=== PATIENT | female | born 1945 | race Caucasian/White ===

== ENCOUNTER 2016-10-18 14:21 | Outpatient (CLI) | payer BC | END 2016-10-18 14:22 | disposition home or self-care (01) | DX: Z12.31 Encounter for screening mammogram for malignant neoplasm of breast (principal) ==

== ENCOUNTER 2016-12-04 06:17 | Inpatient (IN) | payer MEDICARE, BC ==
[2016-12-04] MEDS ORDERED: LACTATED RINGERS 1,000 ML IV ONE ×3 (06:57→10:44)
[2016-12-04] MEDS ORDERED: ceFAZolin 2 GM/50 ML 50 ML IV ONE (07:05)
[2016-12-04] MEDS ORDERED: KETOROLAC 30 MG/ML VIAL IVP ONE (08:00)
[2016-12-04] MEDS ORDERED: ePHEDrine 50 MG/ML AMP IVP ONE (08:00)
[2016-12-04] MEDS ORDERED: LIDOCAINE-MPF 2% 5 ML VIAL IM ONE (08:00)
[2016-12-04] MEDS ORDERED: TRANEXAMIC ACID 1,000 MG/10 ML VIAL IV ONE (08:00)
[2016-12-04] MEDS ORDERED: MIDAZOLAM 2 MG/2 ML VIAL IVP ONE (08:00)
[2016-12-04] MEDS ORDERED: ACETAMINOPHEN 1,000 MG/100 ML VIAL IV ONE (08:00)
[2016-12-04] MEDS ORDERED: fentaNYL 100 MCG/2 ML VIAL IVP ONE (08:00)
[2016-12-04] MEDS ORDERED: KETAMINE 500 MG/10 ML VIAL IVP ONE (08:00)
[2016-12-04] MEDS ORDERED: PROPOFOL 200 MG/20 ML VIAL IVP ONE (08:00)
[2016-12-04] MEDS ORDERED: BUPIVACAINE 0.25%-EPI 1:200000 PF 30 ML VIAL SUBQ ONE ×2 (08:42)
[2016-12-04] MEDS ORDERED: EPINEPHrine 1 MG/ML AMP SUBQ ONE ×2 (08:43)
[2016-12-04] MEDS ORDERED: MORPHINE PF 5 MG/10 ML AMP SUBQ ONE ×2 (08:47)
[2016-12-04] MEDS ORDERED: KETOROLAC 30 MG/ML VIAL IM ONE ×2 (08:47)
[2016-12-04] MEDS ORDERED: ROPIVACAINE 0.2% PF 20 ML AMPULE SUBQ ONE ×2 (08:48)
[2016-12-04] MEDS: HYDROmorphone 1 MG/ML SYRINGE ONE ×4 (12:07→13:10)
[2016-12-04] MEDS ORDERED: ACETAMINOPHEN 1,000 MG/100 ML 100 ML IV PRN (12:17)
[2016-12-04] MEDS ORDERED: PROCHLORPERAZINE 10 MG/2 ML VIAL IVP PRN (12:17)
[2016-12-04] MEDS ORDERED: BISACODYL 10 MG SUPP PR PRN (12:17)
[2016-12-04] MEDS ORDERED: ONDANSETRON 4 MG/2 ML VIAL IVP PRN (12:17)
[2016-12-04] MEDS ORDERED: ZOLPIDEM 5 MG TABLET PO PRN (12:17)
[2016-12-04] MEDS ORDERED: DOCUSATE SODIUM 100 MG CAPSULE PO PRN (12:17)
[2016-12-04] MEDS ORDERED: diphenhydrAMINE 25 MG CAPSULE PO PRN (12:17)
[2016-12-04] MEDS ORDERED: oxyCOD/ACETAMIN 5 MG/325 MG TABLET PO PRN (12:17)
[2016-12-04] MEDS ORDERED: ACETAMINOPHEN 325 MG TABLET PO PRN (12:17)
[2016-12-04] MEDS ORDERED: BISACODYL 5 MG TABLET PO PRN (12:17)
[2016-12-04] MEDS ORDERED: HYDROmorphone 1 MG/ML SYRINGE ONE (12:30)
[2016-12-04] MEDS: SODIUM CHLORIDE FLUSH 0.9% 10 ML SYRINGE IVP SCH ×2 (14:17→20:39)
[2016-12-04] MEDS: LACTATED RINGERS 1,000 ML IV SCH ×2 (14:21→23:29)
[2016-12-04] MEDS: KETOROLAC 30 MG/ML VIAL IVP PRN (16:20)
[2016-12-04] MEDS: HYDROmorphone 1 MG/ML SYRINGE IVP PRN ×2 (16:57→19:36)
[2016-12-04] MEDS: ATORVASTATIN 10 MG TABLET PO SCH (20:38)
[2016-12-04] MEDS: ceFAZolin 2 GM/50 ML 50 ML IV SCH (20:38)
[2016-12-05] MEDS: traMADol 50 MG TABLET PO PRN ×4 (00:11→19:43)
[2016-12-05] MEDS: LACTATED RINGERS 1,000 ML IV SCH ×3 (00:11→22:19)
[2016-12-05] MEDS: HYDROmorphone 1 MG/ML SYRINGE IVP PRN (02:18)
[2016-12-05] MEDS: SODIUM CHLORIDE FLUSH 0.9% 10 ML SYRINGE IVP PRN ×2 (02:18→12:22)
[2016-12-05] MEDS: ceFAZolin 2 GM/50 ML 50 ML IV SCH (03:51)
[2016-12-05] MEDS: KETOROLAC 30 MG/ML VIAL IVP PRN ×3 (03:56→19:43)
[2016-12-05] MEDS: SODIUM CHLORIDE FLUSH 0.9% 10 ML SYRINGE IVP SCH ×3 (06:28→20:30)
[2016-12-05] MEDS: LEVOTHYROXINE 88 MCG TABLET PO SCH (06:32)
[2016-12-05] MEDS: MULTIVITAMIN TABLET PO SCH (08:50)
[2016-12-05] MEDS: CALCIUM CARBONATE CHEW 500 MG TABLET PO SCH (08:50)
[2016-12-05] MEDS: ASCORBIC ACID CHEW 500 MG TABLET PO SCH (08:50)
[2016-12-05] MEDS: MAGNESIUM OXIDE 400 MG TABLET PO SCH (08:50)
[2016-12-05] MEDS: CHOLECALCIFEROL 400 UNIT TABLET PO SCH (08:51)
[2016-12-05] MEDS: CHOLECALCIFEROL 1,000 UNIT TABLET PO SCH (08:51)
[2016-12-05] MEDS: ENOXAPARIN 30 MG/0.3 ML SYRINGE SUBQ SCH (08:51)
[2016-12-05] MEDS: OMEGA-3 ACID ETHYL ESTERS 1 GM CAPSULE PO SCH (08:52)
[2016-12-05] MEDS: ATORVASTATIN 10 MG TABLET PO SCH (20:30)
[2016-12-06] MEDS: traMADol 50 MG TABLET PO PRN ×2 (00:16→14:13)
[2016-12-06] MEDS: HYDROmorphone 1 MG/ML SYRINGE IVP PRN (04:16)
[2016-12-06] MEDS: SODIUM CHLORIDE FLUSH 0.9% 10 ML SYRINGE IVP SCH ×2 (06:34→10:10)
[2016-12-06] MEDS: LEVOTHYROXINE 88 MCG TABLET PO SCH (06:34)
[2016-12-06] MEDS: OMEGA-3 ACID ETHYL ESTERS 1 GM CAPSULE PO SCH (08:49)
[2016-12-06] MEDS: CHOLECALCIFEROL 1,000 UNIT TABLET PO SCH (08:50)
[2016-12-06] MEDS: CALCIUM CARBONATE CHEW 500 MG TABLET PO SCH (08:51)
[2016-12-06] MEDS: ASCORBIC ACID CHEW 500 MG TABLET PO SCH (08:51)
[2016-12-06] MEDS: MAGNESIUM OXIDE 400 MG TABLET PO SCH (08:51)
[2016-12-06] MEDS: MULTIVITAMIN TABLET PO SCH (08:51)
[2016-12-06] MEDS: ENOXAPARIN 30 MG/0.3 ML SYRINGE SUBQ SCH (08:54)
[2016-12-06] MEDS: CHOLECALCIFEROL 400 UNIT TABLET PO SCH (08:55)
[2016-12-06] MEDS: KETOROLAC 30 MG/ML VIAL IVP PRN (10:10)
== END 2016-12-06 14:30 | disposition home or self-care (01) | DRG 470 ==
PROC: 0SRB02A Replacement of Left Hip Joint with Metal on Polyethylene Synthetic Substitute, Uncemented, Open Approach (ICD-10-PCS; principal; 2016-12-04 07:30)
DX: M16.12 Unilateral primary osteoarthritis, left hip (principal); E03.9 Hypothyroidism, unspecified; E78.5 Hyperlipidemia, unspecified; K21.9 Gastro-esophageal reflux disease without esophagitis; Z87.891 Personal history of nicotine dependence

== ENCOUNTER 2017-10-22 13:59 | Outpatient (CLI) | payer BC ==
--- NOTE | 2017-10-23 21:16 | Mammography Report ---
DATE OF SERVICE: 10/22/2017 DIGITAL SCREENING MAMMOGRAM: 10/22/2017 CLINICAL INDICATION: A 72-year-old for screening. COMPARISON: 09/2016, 08/2014, 07/2013, 11/2011, 10/2010, 09/2009. TECHNIQUE: Routine CC and MLO projections were obtained of the breasts. The breasts demonstrate fatty replacement bilaterally. Coarse and punctate, typically benign calcifications are present. No suspicious masses, clustered microcalcifications, or regions of architectural distortion are identified. IMPRESSION: Benign findings. RECOMMENDATIONS: Routine annual screening unless otherwise clinically indicated. BIRADS category 2 benign findings. STANDARD QUALIFYING STATEMENTS 1. This examination was reviewed with the aid of Computed-Aided Detection (CAD). 2. A negative or benign imaging report should not delay biopsy if clinically suspicious findings are present. Consider surgical consultation if warranted. More than 5% of cancers are not identified by imaging. 3. Dense breasts may obscure an underlying neoplasm. TD: 10/23/2017 22:15
== END 2017-10-22 14:00 | disposition home or self-care (01) ==
LOC: DI 13:59
PROVIDERS: ATTEND Physician Assistant
DX: Z12.31 Encounter for screening mammogram for malignant neoplasm of breast (principal)
CPT/HCPCS: 77067

== ENCOUNTER 2020-02-23 13:27 | Outpatient (CLI) | payer BC ==
--- NOTE | 2020-02-24 12:15 | Mammography Report ---
BILATERAL DIGITAL SCREENING MAMMOGRAM 3D/2D WITH CAD: 02/23/2020 CLINICAL: Routine screening. Comparison is made to exams dated: 10/22/2017 mammogram, 10/18/2016 mammogram, and 09/10/2014 mammogra m - [facility]. There are scattered fibroglandular elements in both breasts. Current study was also evaluated with a Computer Aided Detection (CAD) system. No significant masses, calcifications, or other findings are seen in either breast. There has been no significant interval change. IMPRESSION: NEGATIVE There is no mammographic evidence of malignancy. A 1 year screening mammogram is recommended. This exam was interpreted at Station ID: [id number]. NOTE: For mammograms, a report in lay terms will be sent to the patient. Approximately 15% of breast malignancies will not be visualized mammographically. In the management of a palpable breast mass, a negative mammogram must not discourage biopsy of a clinically suspicious lesion. Electronically Signed By: Harjit menon/pensharron:02/23/2020 16:53:44 ACR BI-RADS Category 1: Negative 3341F PARENCHYMAL PATTERN: (A) - The breast(s) demonstrate(s) scattered fibroglandular densities. BI-RADS CATEGORY: (1) - 1 Annual - (ANNUAL) - Recommend routine annual screening mammography. [id number] 1 year screening B
== END 2020-02-23 13:28 | disposition home or self-care (01) ==
LOC: DI 13:27
PROVIDERS: ATTEND Nurse Practitioner Family
DX: Z12.31 Encounter for screening mammogram for malignant neoplasm of breast (principal)
CPT/HCPCS: 77063; 77067

== ENCOUNTER 2020-10-08 07:57 | Outpatient (CLI) | payer BC, MEDICARE ==
--- NOTE | 2020-10-08 09:55 | CARDIAC PROCEDURE NOTE ---
DATE OF SERVICE: 10/08/2020 Physician: Sheeba Powell MD, [facility] INDICATION: Chest pain. CARDIAC RISK FACTORS: Postmenopausal status, family history of heart disease, elevated cholesterol. PROCEDURE: After signing informed consent, the patient underwent a Antonio- protocol treadmill stress test. No cardiac imaging was ordered with this test. RESTING HEART RATE: 59. PEAK HEART RATE: 110 (76% predicted maximum heart rate for age). RESTING BLOOD PRESSURE: 152/68. PEAK BLOOD PRESSURE: 220/86. The patient exercised for 6 minutes on a Antonio-protocol treadmill stress test. She achieved a peak heart rate of 110 (76% PMHR) and 7.05 METs. The patient had mild shortness of breath, her oxygen saturation was 90%-98% on room air throughout the test. The patient did develop her typical chest pain, which is mid scapular, which started at the beginning of stage II. Exercise testing was stopped because of chest pain and her hypertensive blood pressure response of 220/86, before achieving target heart rate. Her chest pain resolved in recovery by 5 minutes. The patient reported her perceived exertion at 15/20 on the Kassy scale. RESTING EKG: Normal sinus rhythm, left atrial enlargement, PAC. EKG AT PEAK: [address] depressions in leads III, aVF, and V3 through V6. These reverted to baseline in 3 min. SUMMARY 1. Borderline normal resting EKG. 2. Hypertensive blood pressure response to exercise. 3. The patient developed her typical chest pain with exercise, at a low level. 4. ST segment depressions developed with this exertion, suggestive of ischemia. IMPRESSION: Abnormal stress test by EKG changes, suggestive of coronary artery disease with typical anginal symptoms. No imaging was ordered with this test. RECOMMENDATIONS 1. Start one baby aspirin daily. 2. Aggressive risk factor management. 3. Sublingual nitroglycerin p.r.n. 4. Light activity was advised to the patient. 5. Consider Cardiology referral and/or cardiac catheterization. cc: KARYNA Castanon TD: 10/08/2020 08:57 MTDD
== END 2020-10-08 07:58 | disposition home or self-care (01) ==
LOC: DI 07:57
PROVIDERS: ATTEND Registered Nurse
DX: R94.39 Abnormal result of other cardiovascular function study (principal); E78.00 Pure hypercholesterolemia, unspecified; Z78.0 Asymptomatic menopausal state; Z82.49 Family history of ischemic heart disease and other diseases of the circulatory system
CPT/HCPCS: 93016; 93018

== ENCOUNTER 2021-03-23 07:55 | Outpatient (CLI) | payer BC, MEDICARE ==
[2021-03-23 15:33] LABS: CHOL/HDL RATIO 2.7 (<4.4); CHOLESTEROL 154 mg/dL; HDL CHOLESTEROL 58 mg/dL; LDL CHOLESTEROL,CALCULATED 80 mg/dL; LDL/HDL RATIO 1.4 (<4.4); TRIGLYCERIDES 79 mg/dL; VLDL CHOLESTEROL 16 mg/dL
== END 2021-03-23 07:56 | disposition home or self-care (01) ==
LOC: LAB.S 07:55
PROVIDERS: ATTEND Registered Nurse
DX: E78.5 Hyperlipidemia, unspecified (principal)
CPT/HCPCS: 36415; 80061; 83721

== ENCOUNTER 2021-12-30 11:50 | Outpatient (CLI) | payer BC, MEDICARE ==
[2021-12-30] MEDS ORDERED: IOVERSOL 320 100 ML VIAL IVP ONE ×2 (12:06→13:11)
--- NOTE | 2021-12-30 13:18 | CT Report ---
PROCEDURE: ANGIO CHEST W/WO INDICATIONS: DYSPNEA ON EXERTION CONTRAST: IV CONTRAST: Optiray 320 ml: 80 PO CONTRAST: *NO PO CONTRAST TECHNIQUE: After the administration of intravenous contrast, 2 mm axial images were acquired from the pulmonary apices to the posterior costophrenic angles during the arterial phase. In addition, 1 mm lung kernel and 5 mm soft tissue kernel reconstructions were performed. 3-dimensional coronal oblique maximum int ensity projection (MIP) reformats, 8 mm axial MIP, and 5 mm coronal and sagittal MPR reformats were t hen performed through the thorax. For radiation dose reduction, the following was used: automated exp osure control, adjustment of mA and/or kV according to patient size. COMPARISON: None FINDINGS: Image quality: Excellent. Pulmonary arteries: Pulmonary arteries are normal in size, and demonstrate no intraluminal filling d efects to suggest central pulmonary embolism. Lungs and pleura: Lungs are clear. No pleural effusions or pneumothorax. Central and peripheral ai rways are patent. Mediastinum: Heart size is normal, without pericardial effusion. Mild calcification of the coronary vasculature. No mediastinal or hilar adenopathy. Thoracic aorta is normal in caliber and enhancement . Esophagus is normal in caliber, without hiatal hernia. Bones and chest wall: No suspicious bony lesions. Ribs and thoracic spine appear intact throughout. No axillary or supraclavicular adenopathy. The thyroid is normal in size and there are no incident al findings. Abdomen: Visualized upper abdominal solid organs appear normal in the early arterial phase of enhanc ement. IMPRESSION: 1. No acute process. 2. No pulmonary embolus. 3. Coronary artery disease. Reviewed by: Marilee Evangelista MD on 12/30/2021 1:16 PM PDT Approved by: Marilee Evangelista MD on 12/30/2021 1:16 PM PDT Station ID: [id number]
== END 2021-12-30 11:51 | disposition home or self-care (01) ==
LOC: DI 11:50
PROVIDERS: ATTEND Registered Nurse
DX: R06.09 Other forms of dyspnea (principal); I25.10 Atherosclerotic heart disease of native coronary artery without angina pectoris
CPT/HCPCS: 71275; Q9967

== ENCOUNTER 2022-09-21 09:16 | Outpatient (CLI) | payer BC, MEDICARE ==
--- NOTE | 2022-09-22 10:43 | Mammography Report ---
BILATERAL DIGITAL SCREENING MAMMOGRAM 3D/2D: 09/21/2022 CLINICAL: Routine screening. Comparison is made to exams dated: 02/23/2020 mammogram - [facility], 10/22/2017 mamm ogram, and 10/18/2016 mammogram - [facility]. Both breasts are almost entirely fatty (category a/<25% glandular tissue). No significant masses, calcifications, or other findings are seen in either breast. There has been no significant interval change. IMPRESSION: NEGATIVE There is no mammographic evidence of malignancy. A 1 year screening mammogram is recommended. Based on the Tyrer Cuzick model (a risk assessment model) the patients lifetime risk is 1.2% and her 10 year risk is 0.0%. According to the ACR, ACS, and NCCN guidelines, an annual breast MRI exam micheline g with mammogram is recommended if the patients lifetime risk is 20% or greater. This exam was interpreted at Station ID: [id number]. NOTE: For mammograms, a report in lay terms will be sent to the patient. Approximately 15% of breast malignancies will not be visualized mammographically. In the management of a palpable breast mass, a negative mammogram must not discourage biopsy of a clinically suspicious lesion. Electronically Signed By: Amie weber/nati:09/21/2022 17:19:44 ACR BI-RADS Category 1: Negative 3341F PARENCHYMAL PATTERN: (F) - The breast(s) demonstrate(s) diffuse fatty replacement. BI-RADS CATEGORY: (1) - 1 RECOMMENDATION: (ANNUAL) - Recommend routine annual screening mammography. [id number] 1 year screening LATERALITY: (B)
== END 2022-09-21 09:17 | disposition home or self-care (01) ==
LOC: DI.S 09:16
PROVIDERS: ATTEND Registered Nurse
DX: Z12.31 Encounter for screening mammogram for malignant neoplasm of breast (principal)

== ENCOUNTER 2022-10-26 07:00 | Outpatient (CLI) | payer BC, MEDICARE ==
--- NOTE | 2022-10-26 14:56 | Ultrasound Report ---
PROCEDURE: Abdomen Limited INDICATIONS: ABN LIVER ENZYMES TECHNIQUE: Real-time focused scanning was performed of the abdomen, with image documentation. COMPARISON: None FINDINGS: Liver demonstrates coarse echotexture and increased echogenicity. Gallbladder within brinda l limits. No biliary ductal dilatation. Pancreas is not well seen but is within normal limits as visu alized. Right kidney is grossly unremarkable. IMPRESSION: Hepatic steatosis. No acute process. Reviewed by: Marilee Evangelista MD on 10/26/2022 2:55 PM PST Approved by: Marilee Evangelista MD on 10/26/2022 2:55 PM PST Station ID: [id number]
== END 2022-10-26 07:01 | disposition home or self-care (01) ==
LOC: DI 07:00
PROVIDERS: ATTEND Registered Nurse
DX: R74.8 Abnormal levels of other serum enzymes (principal); K76.0 Fatty (change of) liver, not elsewhere classified

== ENCOUNTER 2023-07-03 15:50 | Outpatient (CLI) | payer BC ==
--- NOTE | 2023-07-03 20:06 | XRAY Report ---
PROCEDURE: Chest 2 View X-Ray INDICATIONS: WHEEZING TECHNIQUE: 2 views of the chest were obtained. COMPARISON: None. FINDINGS: Surgical changes and devices: None. Lungs and pleura: No pleural effusions or pneumothorax. Lungs are clear. Mediastinum: Mediastinal contours appear normal. Heart size is normal. Bones and chest wall: No suspicious bony lesions. Overlying soft tissues appear unremarkable. IMPRESSION: Normal two-view chest x-ray Reviewed by: Mg Castillo MD on 07/03/2023 7:05 PM PARDEEP Approved by: Mg Castillo MD on 07/03/2023 7:05 PM PARDEEP Station ID: [id number]
== END 2023-07-03 15:51 | disposition home or self-care (01) ==
LOC: DI.S 15:50
PROVIDERS: ATTEND Registered Nurse
DX: R06.2 Wheezing (principal)

== ENCOUNTER 2024-04-25 09:10 | Outpatient (CLI) | payer BC ==
--- NOTE | 2024-04-28 08:24 | Mammography Report ---
BILATERAL DIGITAL SCREENING MAMMOGRAM 3D/2D: 04/25/2024 CLINICAL: Routine screening. Comparison is made to exams dated: 09/21/2022 mammogram, 02/23/2020 mammogram - [facility], and 10/22/2017 mammogram - [facility]. Both breasts are almost entirely fatty (category a/<25% glandular tissue). No significant masses, calcifications, or other findings are seen in either breast. There has been no significant interval change. IMPRESSION: NEGATIVE There is no mammographic evidence of malignancy. A 1 year screening mammogram is recommended. Based on the Tyrer Cuzick model (a risk assessment model) the patient's lifetime risk is 0.9% and her 10 year risk is 0.0%. According to the ACR, ACS, and NCCN guidelines, an annual breast MRI exam micheline g with mammogram is recommended if the patient's lifetime risk is 20% or greater. This exam was interpreted at Station ID: [id number]. NOTE: For mammograms, a report in lay terms will be sent to the patient. Approximately 15% of breast malignancies will not be visualized mammographically. In the management of a palpable breast mass, a negative mammogram must not discourage biopsy of a clinically suspicious lesion. Electronically Signed By: Harjit menon/nati:04/25/2024 16:53:59 letter sent: No_Letter ACR BI-RADS Category 1: Negative 3341F PARENCHYMAL PATTERN: (F) - The breast(s) demonstrate(s) diffuse fatty replacement. BI-RADS CATEGORY: (1) - 1 RECOMMENDATION: (ANNUAL) - Recommend routine annual screening mammography. [id number] 1 year screening LATERALITY: (B)
== END 2024-04-25 09:11 | disposition home or self-care (01) ==
LOC: DI 09:10
PROVIDERS: ATTEND Registered Nurse
DX: Z12.31 Encounter for screening mammogram for malignant neoplasm of breast (principal)

== ENCOUNTER 2024-04-25 09:12 | Outpatient (CLI) | payer BC ==
--- NOTE | 2024-04-26 10:37 | DEXA Report ---
PROCEDURE: Dexa Spine and/or Hip INDICATIONS: POSTMENOPAUSAL TECHNIQUE: Dual energy x-ray absorptiometry (DXA) was performed on a [employer] System. Regions measur ed are the AP Spine, femoral neck, and if needed forearm. COMPARISON: None FINDINGS: Lumbar Spine: Bone Mineral Density: 1.188 g/cm/cm,T score: 0.2. Left Femoral Neck: Bone Mineral Density: 0.702 g/cm/cm, T score: -2.4. Left Hip: Bone Mineral Density: 0.794 g/cm/cm,T score: -1.7. FRAX risk factors: 10 year risk of major osteoporotic fracture: 49.5% major osteoporotic fracture = hip, clinical vertebral, proximal humerus, distal forearm 10 year risk of hip fracture: 37.5% (T score greater or equal to -1.0: NORMAL) (T score from -1.1 to -2.4: OSTEOPENIA) (T score less than or equal to -2.5 to: OSTEOPOROSIS) Impression: By WHO criteria, this patient has low bone density (osteopenia). Patients with diagnosis of osteoporosis or osteopenia should have regular bone mineral density assess ment. For those eligible for Medicare, routine testing is allowed once every 2 years. Testing frequ ency can be increased for patients who have rapidly progressing disease or for those who are receivin g medical therapy to restore bone mass. Reviewed by: Tk Thornton MD on 04/26/2024 10:35 AM PDT Approved by: Tk Thornton MD on 04/26/2024 10:35 AM PDT Station ID: [id number]
== END 2024-04-25 09:13 | disposition home or self-care (01) ==
LOC: DI 09:12
PROVIDERS: ATTEND Registered Nurse
DX: M85.88 Other specified disorders of bone density and structure, other site (principal); Z78.0 Asymptomatic menopausal state

== ENCOUNTER 2024-05-29 14:00 | Outpatient (CLI) | payer BC ==
--- NOTE | 2024-05-29 16:32 | XRAY Report ---
PROCEDURE: Hip w/Pelvis 2-3V RT INDICATIONS: OSTEOARTHRITIS TECHNIQUE: AP view the pelvis, frog-leg view of the right hip COMPARISON: None. FINDINGS: Status post left hip total arthroplasty; no hardware competition of the acetabular and femoral head c omponents. The femoral stem is in the [id number]. Diffuse osseous demineralization. No fracture or dislocation. Mild right hip, mild pubic symphysis, m ild bilateral sacroiliac joint, and mild lower lumbar osteoarthritis. IMPRESSION: Mild right hip osteoarthritis. Reviewed by: Zev Echevarria MD on 05/29/2024 4:31 PM PDT Approved by: Zev Echevarria MD on 05/29/2024 4:31 PM PDT Station ID: [id number]
== END 2024-05-29 14:01 | disposition home or self-care (01) ==
LOC: DI.S 14:00
PROVIDERS: ATTEND Registered Nurse
DX: M16.11 Unilateral primary osteoarthritis, right hip (principal)